=== PATIENT | female | born 1960 | race Caucasian/White ===

== ENCOUNTER 2025-01-01 13:45 | Outpatient (RCR) | payer BC, SELFPAY | END 2025-01-27 07:47 | disposition home or self-care (01) | PROVIDERS: PCP Family Medicine; Visit Provider Family Medicine | DX: M25.561 Pain in right knee (principal); R26.2 Difficulty in walking, not elsewhere classified; M62.551 Muscle wasting and atrophy, not elsewhere classified, right thigh; Z51.89 Encounter for other specified aftercare | CPT/HCPCS: 97110; 97112; 97162 ==